=== PATIENT | male | born 1990 | race African-American/Black ===

== ENCOUNTER 2019-08-30 18:14 | Emergency (ER) | payer MEDICAID ==
[~2019-08-30] VITALS: Ht 177.8 cm; Wt 62.0 kg
[2019-08-30 18:22] VITALS: BP 119/74
[2019-08-30] MEDS ORDERED: IBUPROFEN 600MG TABLET PO ONE (18:45)
== END 2019-08-30 20:21 | disposition home or self-care (01) ==
LOC: ER 18:14
DX: J06.9 Acute upper respiratory infection, unspecified (principal)
CPT/HCPCS: 87804; 99283

== ENCOUNTER 2021-08-03 04:33 | Emergency (ER) | payer MEDICAID ==
[~2021-08-03] VITALS: Ht 180.3 cm; Wt 61.0 kg
[2021-08-03] MEDS ORDERED: IBUPROFEN 600MG TABLET PO ONE (05:00)
[2021-08-03] MEDS ORDERED: IBUP-2029 MT (05:20)
[2021-08-03 05:47] VITALS: BP 125/82
== END 2021-08-03 05:48 | disposition home or self-care (01) ==
LOC: ER 04:33
DX: R07.89 Other chest pain (principal)
CPT/HCPCS: 93005; 99283